=== PATIENT | female | born 1950 | race Caucasian/White ===

== ENCOUNTER 2019-11-10 14:14 | Outpatient (CLI) | payer MEDICARE, SELFPAY ==
--- NOTE | 2019-11-10 14:30 | XR_ITS ---
WS: [id number] EXAM: XR lumbar spine min 4V [id number] DATE OF EXAMINATION: 11/10/2019, 1553 hours COMPARISON: MRI of the lumbar spine from 08/05/2005 HISTORY: 69 years old with acute left-sided low back pain with sciatica. FINDINGS: Bone density is decreased. Lower thoracic and lumbar vertebrae as well as upper sacral segments are o f normal height. Slight degenerative changes L2-3 level. Slight narrowing of the disc space with mini mal posterior spurring L4-5 level. Narrowing of the disc space with posterior and anterior endplate s purring L5-S1 level. Facet arthropathy changes lower lumbar spine. Most pronounced L4-5 level. No acu te fracture or subluxation is seen. No pars fracture noted. All pedicles are appreciated on the AP ra diograph. No paraspinal soft tissue abnormality seen. Clips right quadrant correlate with cholecystec scott changes XR/XR lumbar spine min 4V [id number] IMPRESSION: SCATTERED CHANGES OF ARTHRITIS WHICH APPEAR TO HAVE PROGRESSED SINCE 2005. NO A CUTE ABNORMALITY.
--- NOTE | 2019-11-10 14:30 | XR_ITS ---
WS: [id number] EXAM: XR cervical spine 3V* [id number] DATE OF EXAMINATION: 11/10/2019, 1444 hours COMPARISON: None. HISTORY: 69 years old with neck pain. FINDINGS: Cervical vertebral bodies are of normal height. The pre dens space and prevertebral soft tissue plane are normal. Advanced degenerative spondylosis changes seen C5-6 level with collapse of the disc spac e with both anterior and posterior spurring. Minimal disc bulging C4-5 and C6-7 levels. Slight facet arthropathy is most prominent C4-5 level. C1-C2 alignment is normal. No fracture or subluxation malal ignment is noted. No soft tissue abnormality is demonstrated. XR/XR cervical spine 3V* [id number] IMPRESSION: Scattered changes of arthritis as described. Most severe C5-6 level. No acute a bnormality.
== END 2019-11-10 14:15 | disposition home or self-care (01) ==
LOC: RAD 14:25
PROVIDERS: PCP Registered Nurse; Visit Provider Registered Nurse
DX: M54.2 Cervicalgia (principal); M54.42 Lumbago with sciatica, left side; M46.92 Unspecified inflammatory spondylopathy, cervical region
CPT/HCPCS: 72040; 72114

== ENCOUNTER 2020-06-17 14:28 | Emergency (ER) | payer MEDICARE, SELFPAY ==
[2020-06-17 14:51] VITALS: BP 198/94; PULSE 69; RESP 20; TEMP 36.9; O2SAT 97; BMI 32.7
[2020-06-17 15:08] VITALS: PULSE 65; RESP 16; O2SAT 100
--- NOTE | 2020-06-17 15:33 | ECG_ITS ---
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 Measurements Intervals [place] Rate: 58 P: 49 NE: 169 QRS: 4 QRSD: 89 T: 45 QT: 395 QTc: 389 Interpretive Statements SINUS BRADYCARDIA POSSIBLE INFERIOR MYOCARDIAL INFARCTION , OF INDETERMINATE AGE [30 ms Q WAVE IN II/aVF] Compared to ECG 03/19/2018 14:47:36 Myocardial infarct finding now present Electronically Signed On 06-17-2020 17:58:59 CDT by Jared Gonsalez M.D. [id number]
[2020-06-17 15:52] LABS: Basophils # 0.1 10^3/uL (0.0-0.1); Basophils % 0.6 %; Eosinophils # 0.1 10^3/uL (0.0-0.8); Eosinophils % 0.8 %; Hematocrit 39.3 % (37.0-47.0); Hemoglobin 12.7 g/dL (11.5-15.3); Lymphocytes # 2.1 10^3/uL (0.8-4.8); Mean Corpuscular HGB Conc 32.3 g/dL (30.0-36.0); Mean Corpuscular Hemoglobin 30.1 pg (28.0-34.0); Mean Corpuscular Volume 93.1 fL (81-99); Mean Platelet Volume 10.8 fL (7.4-10.4); Monocytes # 0.8 10^3/uL (0.2-0.9); Monocytes % 10.9 %; Neutrophils # 4.68 10^3/uL (1.8-7.7); Neutrophils % 60.4 %; Nucleated Red Blood Cells % 0 %; Platelet Count 284 10^3/cmm (130-400); Red Blood Count 4.22 10^6/uL (4.1-5.3); Red Cell Distribution Width 12.6 % (12.1-15.1); White Blood Count 7.7 10^3/uL (4.0-10.0)
[2020-06-17 16:11] LABS: Alanine Aminotransferase 26 U/L (0-33); Albumin Level 4.6 g/dL (3.5-5.2); Alkaline Phosphatase 85 IU/L (35-105); Anion Gap 14.1 (5-19); Aspartate Amino Transferase 18 U/L (0-32); Blood Urea Nitrogen 16 mg/dL (8-23); Calcium 9.4 mg/dL (8.5-10.5); Carbon Dioxide 27 mmol/L (22-29); Chloride 103 mmol/L (98-107); Globulin 2.5 g/dL (1.3-4.6); Glomerular Filtration Rate 82.7 mL/min (90-130); Glucose 87 mg/dL (65-115); Osmolality Calculated 291 mOsm/kg (285-295); Potassium 4.1 mmol/L (3.5-5.1); Sodium 140 mmol/L (136-145); Total Bilirubin 0.3 mg/dL (0.15-1.2); Total Protein 7.1 g/dL (6.6-8.7)
[2020-06-17 16:12] LABS: Troponin(5th) Baseline 6 ng/L (0-10)
[2020-06-17] MEDS: ketorolac 30 mg/mL INJ IVP (16:39)
[2020-06-17] MEDS: orphenadrine 30 mg/mL Inj 2 mL 60 MG IVP (16:40)
--- NOTE | 2020-06-17 17:33 | ECG_ITS ---
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 Measurements Intervals [place] Rate: 58 P: 61 SD: 157 QRS: 4 QRSD: 90 T: 51 QT: 406 QTc: 399 Interpretive Statements SINUS BRADYCARDIA Compared to ECG 06/17/2020 15:46:35 Myocardial infarct finding no longer present Electronically Signed On 06-17-2020 18:14:40 CDT by Jared Gonsalez M.D. [id number]
[2020-06-17 18:16] LABS: Troponin 5 2HR 6.01 ng/L (0-10); Troponin 5 2HR Delta 0.01 ABS# (0-10)
--- NOTE | 2020-06-17 18:17 | PC.NURSE ---
EKG done 1809 and shown to ER doctor
--- NOTE | 2020-06-17 18:28 | ED_ITS ---
HPI - Extremity Problem General: Chief complaint: Extremity Injury, Upper Stated complaint: NECK/SHOULDER PAIN, L SIDE FACE NUMBNESS Time Seen by Provider: 06/17/20 15:00 Source: patient Mode of arrival: ambulatory Limitations: no limitations History of Present Illness: HPI Narrative: This is a 70-year-old female who presents to the emergency department with neck pain radiating down to her shoulder and her left upper extremity. She has a history of C5 disc bulge leading to radiculopathy. She saw her primary care provider 2 days ago and was given a steroid injection but she says it does not help. She says the pain is so severe and she is not able to take it anymore. She denies any trauma, denies any prior surgery. MD Complaint: extremity pain Onset (ago): day(s) (2) Pain Consistency: constant Location: left and upper extremity Severity scale (1-10): 10 Quality: stabbing Radiation: none Relieving factors: nothing Exacerbating factors: range of motion Associated symptoms: Deny arthralgias, chest pain, fever(s), myalgias, rash or short of breath Review of Systems General: Reports: 10 or more systems reviewed and unremarkable except in HPI and below Const: Denies: fever(s) Card: Denies: chest pain Skin/Breast: Denies: rash Physical Exam Const: COMMON NORMALS: no acute distress, average body habitus, patient oriented x3, no limitations, healthy appearing, alert and well nourished HENMT: COMMON NORMALS: normocephalic, atraumatic and moist oral mucous membranes HEAD & SCALP: normocephalic and atraumatic Neck/C-Spine: COMMON NORMALS: supple, no meningeal signs, no JVD and No carotid bruits CERVICAL SPINE: Yes pain with cervical ROM, No Cervical spine tenderness, Yes Paracervical muscle tenderness left and Yes Paracervical spasm left OTHER: Spurling's test positive on the left. Resp: COMMON NORMALS: normal respiratory effort, No retractions, No use of accessory muscles, clear to auscultation bilaterally and percussion normal AUSCULTATION: clear to auscultation bilaterally PERCUSSION: percussion normal Cardio: COMMON NORMALS: no JVD, regular rate, regular rhythm, S1 normal heart sound present, S2 normal heart sound present, No gallops present (Cardio), No clicks present (Cardio), No murmurs present (Cardio), No rub (Cardio) and Peripheral pulses 2+ throughout RATE: regular rate RHYTHM: regular rhythm HEART SOUNDS: S1 normal heart sound present and S2 normal heart sound present PERIPHERAL PULSES: Peripheral pulses 2+ throughout GI: COMMON NORMALS: Normal to inspection, nondistended, normoactive bowel sounds present, Soft to palpation, non-tender, No hepatosplenomegaly present, no masses and no bruits PALPATION: Yes Soft to palpation and Yes No hepatosplenomegaly present Extremity: COMMON NORMALS: normal to inspection, full ROM, capillary refill normal, no calf tenderness and no pedal edema Neuro: COMMON NORMALS: patient oriented x3 SENSORIUM/ORIENTATION: Yes alert MENINGEAL SIGNS: Yes no meningeal signs Skin: COMMON NORMALS: no rashes or lesions noted, no wounds, turgor normal, no jaundice, no petechiae and no mottling GENERAL SKIN EXAM: no rashes or lesions noted and turgor normal Course Reevaluation(s): Reevaluation #1: Discussed her lab and imaging findings with her. Negative cardiac work-up. I explained that her pain is most likely secondary to cervical radiculopathy. We will discharge her home with a prescription for steroids and gabapentin and she voiced understanding and is in agreement with the plan. She will follow-up with her primary care provider. Time: 18:28 Vital Signs: Vital signs: Vital Signs Temperature 98.5 F 06/17/20 14:51 Pulse Rate 65 06/17/20 15:08 Respiratory Rate 16 06/17/20 15:08 Blood Pressure 198/94 06/17/20 14:51 Pulse Oximetry 100 06/17/20 15:08 MDM - Extremity (Nontraumatic) MDM Narrative: Medical decision making narrative: 70-year-old female patient with clinical features consistent with cervical radiculopathy. Pain improved following administration of intravenous ketorolac and methylprednisolone as well as orphenadrine. She is discharged home with a prescription for oral steroids, gabapentin and hydrocodone and is to f/u with her PCP. Medical Records: Attestation: I reviewed the patient's medical records. Lab Data: Attestation: I reviewed the patient's lab results. Labs: Lab Results 06/17/20 06/17/20 06/17/20 Range/Units 15:45 15:45 15:45 WBC 7.7 (4.0-10.0) 10^3/ uL RBC 4.22 (4.1-5.3) 10^6/u L Hgb 12.7 (11.5-15.3) g/dL Hct 39.3 (37.0-47.0) % MCV 93.1 (81-99) fL MCH 30.1 (28.0-34.0) pg MCHC 32.3 (30.0-36.0) g/dL RDW 12.6 (12.1-15.1) % Plt Count 284 (130-400) 10^3/c mm MPV 10.8 H (7.4-10.4) fL Neut % (Auto) 60.4 % Lymph % (Auto) 27.0 % [place] % (Auto) 10.9 % Eos % (Auto) 0.8 % Baso % (Auto) 0.6 % Neut # (Auto) 4.68 (1.8-7.7) 10^3/u L Lymph # (Auto) 2.1 (0.8-4.8) 10^3/u L [place] # (Auto) 0.8 (0.2-0.9) 10^3/u L Eos # (Auto) 0.1 (0.0-0.8) 10^3/u L Baso # (Auto) 0.1 (0.0-0.1) 10^3/u L Nucleated RBC % (a uto) 0 % Nucleated RBCs # 0.0 /100WBC Sodium 140 (136-145) mmol/L Potassium 4.1 (3.5-5.1) mmol/L Chloride 103 (98-107) mmol/L Carbon Dioxide 27 (22-29) mmol/L Anion Gap 14.1 (5-19) BUN 16 (8-23) mg/dL Creatinine 0.7 (0.5-0.9) mg/dL GFR Calculation 82.7 L (90-130) mL/min Glucose 87 (65-115) mg/dL Calculated Osmolal ity 291 (285-295) mOsm/k g Calcium 9.4 (8.5-10.5) mg/dL Total Bilirubin 0.3 (0.15-1.2) mg/dL AST 18 (0-32) U/L ALT 26 (0-33) U/L Alkaline Phosphata se 85 (35-105) IU/L Troponin T Baselin e 6 (0-10) ng/L Troponin T 120 Min [place] (0-10) ng/L Delta Troponin T (0-10) ABS# Total Protein 7.1 (6.6-8.7) g/dL Albumin 4.6 (3.5-5.2) g/dL Globulin 2.5 (1.3-4.6) g/dL 06/17/20 Range/Units 17:39 WBC (4.0-10.0) 10^3/ uL RBC (4.1-5.3) 10^6/u L Hgb (11.5-15.3) g/dL Hct (37.0-47.0) % MCV (81-99) fL MCH (28.0-34.0) pg MCHC (30.0-36.0) g/dL RDW (12.1-15.1) % Plt Count (130-400) 10^3/c mm MPV (7.4-10.4) fL Neut % (Auto) % Lymph % (Auto) % [place] % (Auto) % Eos % (Auto) % Baso % (Auto) % Neut # (Auto) (1.8-7.7) 10^3/u L Lymph # (Auto) (0.8-4.8) 10^3/u L [place] # (Auto) (0.2-0.9) 10^3/u L Eos # (Auto) (0.0-0.8) 10^3/u L Baso # (Auto) (0.0-0.1) 10^3/u L Nucleated RBC % (a uto) % Nucleated RBCs # /100WBC Sodium (136-145) mmol/L Potassium (3.5-5.1) mmol/L Chloride (98-107) mmol/L Carbon Dioxide (22-29) mmol/L Anion Gap (5-19) BUN (8-23) mg/dL Creatinine (0.5-0.9) mg/dL GFR Calculation (90-130) mL/min Glucose (65-115) mg/dL Calculated Osmolal ity (285-295) mOsm/k g Calcium (8.5-10.5) mg/dL Total Bilirubin (0.15-1.2) mg/dL AST (0-32) U/L ALT (0-33) U/L Alkaline Phosphata se (35-105) IU/L Troponin T Baselin e (0-10) ng/L Troponin T 120 Min [place] 6.01 (0-10) ng/L Delta Troponin T 0.01 (0-10) ABS# Total Protein (6.6-8.7) g/dL Albumin (3.5-5.2) g/dL Globulin (1.3-4.6) g/dL Discharge Plan Discharge Patient Disposition: Home Clinical Impression: Cervical radiculopathy Condition: Stable Prescriptions: New gabapentin 100 mg capsule 100 mg PO TID Qty: 30 RF: 0 hydrocodone-acetaminophen 5-325 mg tablet 1 tab PO Q8H PRN (Reason: pain) Qty: 12 RF: 0 prednisone 20 mg tablet 20 mg PO DAILY Qty: 5 RF: 0 Continued phentermine 37.5 mg tablet 37.5 mg PO DAILY RF: 0 Tylenol Extra Strength 500 mg Tablet 1,000 mg PO PRN RF: 0 Nataliia Valerio Vit Hair Skin Nails 1 tab PO DAILY RF: 0 [place]one Vitamins For Stress 1 tab PO DAILY RF: 0 Discharge Orders: Discharge ED (Routine); Ordered 06/17/20 Ordered By: Rah Richards Referrals: Irma Howell FNP [Primary Care Provider] - 1-3 days Discharge Diet: Usual diet Discharge Activity: Limit activity as instructed Patient Instructions: Cervical Radiculopathy (ED), Opioid Safety Activity Restrictions/Additional Instructions: Return for any new or worsening symptoms. Follow-up with your primary care provider within 3 days. He will benefit from physical therapy, so have your primary care provider refer you for physical therapy. Take the pain medicine as needed for pain. Take the other prescriptions as prescribed. Coding Level of Care Code ED Blanket Winder Operator for Sabra Fwdrake Exam Comprehensive
[2020-06-17] MEDS: HYDROcodone-acetaminophen 5-325 mg Tablet 1 TAB PO (19:17)
== END 2020-06-17 19:14 | disposition home or self-care (01) ==
PROVIDERS: Emergency Provider Family Medicine; PCP Registered Nurse
DX: M54.12 Radiculopathy, cervical region (principal)
CPT/HCPCS: 36415; 80053; 84484; 85025; 93005; 96374; 96375; 99284; J1885; J2360; J2930

== ENCOUNTER 2020-06-25 11:36 | Outpatient (CLI) | payer MEDICARE, SELFPAY ==
--- NOTE | 2020-06-25 11:45 | XRR_ITS ---
PROCEDURE INFORMATION: Exam: XR Left Shoulder Exam date and time: 06/25/2020 12:29 PM Age: 70 years old Clinical indication: Pain; Shoulder; Left; Additional info: Chronic left shoulder pain/numbness tingling in L arm TECHNIQUE: Imaging protocol: XR Left shoulder. Views: 2 views. Other technique: AP internal and external rotation upright views of the left shoulder. COMPARISON: No relevant prior studies available. FINDINGS: Bones/joints: Normal. Soft tissues: Normal. XR/XR shoulder LT min 2V* [id number] IMPRESSION: No acute findings.
--- NOTE | 2020-06-25 11:45 | XRR_ITS ---
PROCEDURE INFORMATION: Exam: XR Cervical Spine Exam date and time: 06/25/2020 12:31 PM Age: 70 years old Clinical indication: Neck pain; Additional info: Neck pain on left side/numbness tingling in left arm TECHNIQUE: Imaging protocol: XR of the cervical spine. Views: 3 views. Other technique: AP, lateral and AP open mouth odontoid views of the cervical spine are submitted. COMPARISON: CR XR cervical spine 3V* [id number] 11/10/2019 2:41 PM FINDINGS: Bones/joints: Slight C4-C5 anterolisthesis. Left C4-C5 primary facet are steer arthritis. C5-6 degenerative disc disease with moderate spondylosis. Soft tissues: Unremarkable. Dental: Edentulous maxilla and mandible. XR/XR cervical spine 3V* [id number] IMPRESSION: 1. Degenerative changes as above. 2. No acute cervical spinal bony abnormality identified.
== END 2020-06-25 11:37 | disposition home or self-care (01) ==
LOC: RAD 11:39
PROVIDERS: PCP Registered Nurse; Visit Provider Registered Nurse
DX: M54.2 Cervicalgia (principal); R20.0 Anesthesia of skin; R20.2 Paresthesia of skin; M25.512 Pain in left shoulder
CPT/HCPCS: 72040; 73030

== ENCOUNTER → 2024-08-26 08:11 | Outpatient (BNVA) | payer MEDICARE, SELFPAY | PROVIDERS: PCP Registered Nurse; Referring Provider Family Medicine; Visit Provider Internal Medicine | DX: E03.9 Hypothyroidism, unspecified (principal); K21.9 Gastro-esophageal reflux disease without esophagitis | CPT/HCPCS: 99204 ==